=== PATIENT | female | born 2000 | race African-American/Black ===

== ENCOUNTER 2019-01-20 12:50 | Emergency (ER) | payer MEDICAID ==
[~2019-01-20] VITALS: Ht 88.9 cm; Wt 102.0 kg
[2019-01-20] MEDS ORDERED: IPRATROPIUM BROMIDE (0.02%) 0.5MG/2.5ML NEB HHN STA (15:44)
[2019-01-20] MEDS ORDERED: PREDNISONE 20MG TABLET PO STA (15:44)
[2019-01-20] MEDS ORDERED: ALBUTEROL (0.083%) 2.5MG/3ML NEB HHN STA (15:44)
[2019-01-20] MEDS ORDERED: ALBUTEROL (0.083%) 2.5MG/3ML NEB HHN ONE ×2 (17:00→17:45)
[2019-01-20] MEDS ORDERED: ALBUTEROL (0.083%) 2.5MG/3ML NEB ONE (17:09)
[2019-01-20 18:33] VITALS: BP 120/88
== END 2019-01-20 18:34 | disposition home or self-care (01) ==
LOC: ER 12:50
DX: J45.901 Unspecified asthma with (acute) exacerbation (principal)
CPT/HCPCS: 71045; 81025; 94640; 99285; J7512; J7611